=== PATIENT | male | born 1960 | race Two or more races ===

== ENCOUNTER 2017-11-06 08:07 | Emergency (ER) | payer SELFPAY ==
[~2017-11-06] VITALS: Ht 160 cm; Wt 74.8 kg
[2017-11-06 08:09] VITALS: BP 178/92
[2017-11-06] MEDS ORDERED: NEOMYCIN-BACITRACIN-POLYM UNITDOSE PKG TOP OINT TOP ONE (09:30)
== END 2017-11-06 09:36 | disposition home or self-care (01) ==
LOC: ER 08:10
DX: S01.81XA Laceration without foreign body of other part of head, initial encounter (principal); W01.0XXA Fall on same level from slipping, tripping and stumbling without subsequent striking against object, initial encounter; Y93.89 Activity, other specified; Y99.8 Other external cause status; Y92.89 Other specified places as the place of occurrence of the external cause
CPT/HCPCS: 12002

== ENCOUNTER 2017-11-18 15:59 | Emergency (ER) | payer SELFPAY ==
[~2017-11-18] VITALS: Ht 160 cm; Wt 74.8 kg
[2017-11-18 16:47] VITALS: BP 148/72
== END 2017-11-18 16:55 | disposition home or self-care (01) ==
LOC: ER 15:59
DX: S01.81XD Laceration without foreign body of other part of head, subsequent encounter (principal); X58.XXXD Exposure to other specified factors, subsequent encounter